=== PATIENT | male | born 1990 | race Caucasian/White ===

== ENCOUNTER 2024-11-08 10:25 | Outpatient (REF) | payer OTHER, MEDICAID, SELFPAY ==
--- NOTE | ~2024-11-08 | XR_ITS ---
EXAMINATION: XR CHEST CLINICAL INFORMATION: R05.9 - Cough, unspecified COMPARISON: None available. TECHNIQUE: 2 views of the chest were obtained. FINDINGS: No consolidation pleural effusion or pneumothorax. Cardiomediastinal silhouette size is normal. Osseous structures are intact. S-shaped curvature of the thoracic spine. XR/XR chest 2V IMPRESSION: No acute airspace disease. Questionable scoliosis, mild. Electronically signed by: Dayron Ureña MD 11/08/2024 11:15 AM [facility]
--- OUTSIDE RECORDS SUMMARY | 2024-11-08 11:40 | XMS_ITS | Clinical Summary ---
Author Organization [address] [facility] Address [address] [place] [address] Phone Care Team Providers Care Underground Production Foreperson Name Role Phone Dave French DO Primary Care Provider [phone] Family History Medical History Relation Name Comments [...] LAB CHEMISTRY METHOD 07/28/2024 5:21 PM EST [facility] Triglycerides 131 0 - 150 mg/dL LAB CHEMISTRY METHOD 07/28/2024 5:21 PM EST [facility] HDL 39(L) >=40 mg/dL LAB CHEMISTRY METHOD 07/28/2024 5:21 PM EST [facility] LDL Calculated 105(H) 0 - 100 mg/dL LAB CHEMISTRY METHOD 07/28/2024 5:21 PM EST [facility] VLDL Cholesterol Sean 26.2 mg/dL LAB CHEMISTRY METHOD 07/28/2024 5:21 PM EST [facility] Non HDL Chol. (LDL+VLDL) 131 <145 mg/dL LAB CHEMISTRY METHOD 07/28/2024 5:21 PM EST [facility] Chol/HDL Ratio 4.4 0.0 - 4.4 LAB CHEMISTRY METHOD 07/28/2024 5:21 PM EST [facility] Blood Venous blood specimen / Unknown Venipuncture / Unknown 07/28/2024 1:46 PM EST 07/28/2024 1:46 PM EST us Samuel Chapman OFFAL TRIMMER LAB BLOOD ORDERABLES Final Resul t [facility] [address] [place] [address], from Last 3 Months or Most Recently Relevant to Health Maintenance Insurance [place] - [place] Care Teams Underground Production Foreperson Relationship Specialty Start Date End Date Dave French DO [address] [place] [phone] PCP - General Internal Medicine 07/28/24
== END 2024-11-08 10:26 | disposition home or self-care (01) ==
LOC: HO.HMGCX 10:25
PROVIDERS: PCP Internal Medicine; Visit Provider Physician Assistant
DX: R05.2 Subacute cough (principal)
CPT/HCPCS: 71046

== ENCOUNTER 2024-11-08 10:25 | Outpatient (AMB) | payer OTHER, MEDICAID, SELFPAY ==
--- NOTE | 2024-11-08 10:31 | AM.OFFWIN_ITS ---
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 Patient Tobacco Use Status: Never used Tobacco Allergies Penicillins Adverse Reaction (Severe, Verified 11/08/24 10:35) Anaphylaxis Do you need a note to return to daycare/school/sports/work: Yes HPI HPI Comments History of Present Illness Details History - The patient is a 34-year-old male pres enting with a persistent dry cough. - Initially, bronchitis was diagnosed in late August while abroad in [facility] and [facility]. - Improvement was noted upon return home ; however, the cough persisted for 2 to 3 months, with a tendency to worsen. - The cough is primarily non-productive but was associated with vomiting due to severe coughing without associated symptoms such as sore throat, ear pain, headaches, sinus pain, shortness of breath, fevers or wheezing. - No history of acid reflux symptoms is reported though cough is worse after eating. - Previous treatment included antihistam bert, inhaler and montelukast for the initially diagnosed bronchitis. - Patient is a student at [employer] Physical Exam General: Cooperative, healthy appearing, comfortable and no acute distress Orientation/consciousness: Patient oriented x3 Limitations: No limitations Head: Normal to inspection Ears: Hearing grossly normal bilaterally, external ears normal and TM's normal bilaterally Nose: Normal external nose present, Normal nares present and No nasal discharge present Face and sinus: Normal facial exam and Yes sinuses nontender Mouth: Normal oral and palatal mucosa present and moist mucous membranes Throat: Yes tonsils normal, Yes uvula midline. slight posterior oropharynx erythema Eyes: Appearance normal, both eyes and all related structures Neck: Normal visual inspection Respiratory: Clear to auscultation bilaterally. Normal respiratory effort, able to speak in complete sentences, Actively coughing, no respiratory distress, not tachypneic, no tripod positioning and no use of accessory muscles Cardiovascular: Regular rate and rhythm. Normal S1 and S2 Skin: No rashes or lesions noted Neuro: Patient oriented x3 Extremities: Normal to inspection and Yes no clubbing, cyanosis or edema PFSH Social History Patient Tobacco Use Status: Never used Tobacco Review of Systems Const All systems reviewed & are unremarkable except as noted in HPI and below Physical Exam Vital Signs: Last Vital Signs Temp 99.3 F 11/08/24 10:33 Pulse 103 H 11/08/24 10:33 BP 120/78 11/08/24 10:33 Pulse Ox 99 11/08/24 10:33 Oxygen Delivery Method Room Air 11/08/24 10:33 Assessment & Plan Assessment & Plan (1) Cough: Code(s): R05.9 - Cough, unspecified Qualifiers: Cough type: subacute Qualified Code(s): R05.2 - Subacute cough Plan: I aim to address the chronic cough by investigating potential lingering bacterial infection or reflux-related issues. A chest x-ray will be conducted to identify any pathological structural concerns. A prescribed course of Azithromycin will be given to treat possible bacterial involvement. In case of persistence post-antibiotic treatment, I recommend starting omeprazole, particularly if postprandial exacerbation is noticed, to manage possible reflux. Continuing omeprazole will be initiated twice daily to assess efficacy in symptom control. Further action, particularly in terms of ongoing reflux management or medication alteration, will depend on symptom evolution. Coordination with the patient's primary care physician will be advisable if GERD becomes evident in symptomatology. Patient was informed and verbally consented to the use of an ambient scribe for clinic note documentation during this visit Orders: Orders XR chest 2V Today R05.9 - Cough, unspecified Medications: New azithromycin For 250 mg dose pack: take 500 mg today (day 1), then 250 mg for 4 days (days 2-5) PO 6 tabs 0RF Coding Level of Care Code New Pt Level 4 (24993) Diagnoses Subacute cough R05.2 Cough type: subacute
[2024-11-08 10:33] VITALS: BP 120/78; PULSE 98; TEMP 37.4; O2SAT 99
--- OUTSIDE RECORDS SUMMARY | 2024-11-08 11:03 | XMS_ITS | Clinical Summary ---
Author Organization [address] [facility] Address [address] [place] [address] Phone Care Team Providers Care Wax Machine Operator Name Role Phone Dave French DO Primary Care Provider [phone] Family History Medical History Relation Name Comments Diabetes Father Hyperlipidemia Father Coronary artery disease Maternal Grandfather COPD Maternal Grandmother No Known Problems Mother Coronary artery disease Paternal Grandfather Coronary artery disease Paternal Grandmother Asthma Sister 1 Brain cancer Sister 2 Other: liver problems Sister 2 Other: pituatery prblem Sister 2 Relation Name Status Comments Father Maternal Grandfather Maternal Grandmother Mother Paternal Grandfather Paternal Grandmother Sister 1 Sister 2 Alive Social History Tobacco Use Types Packs/Day Years Used Date Smoking Tobacco: Never Smokeless Tobacco: Never Alcohol Use Standard Drinks/Week Comments Never 0 (1 standard drink = 0.6 oz pur e alcohol) Sex and Gender Information Value Date Recorded Sex Assigned at Not on file Legal Sex Male 3:21 PM EST Gender Identity Not on file Sexual Orientation Not on file Obstetrics History Plan of Treatment Health Maintenance Due Date Last Done Comments Hepatitis B Vaccines (1 of 3 - 19+ 3-dose series) 2009 Pneumococcal Vaccine: Pediatrics (0 to 5 Years) and At-Risk Patients (6 to 64 Years) (1 of 2 - PCV) 2009 Depression Screening 08/19/2022 HIV Screening 08/19/2022 Hepatitis C Screening 08/19/2022 Social Influencers of Health Screening 08/19/2022 COVID-19 Vaccine (3 - 2023-2 5 season) 2024 08/29/2021, 02/13/2021 Influenza Vaccine (#1) 2024 Cholesterol Screening (Lipid Panel) 07/28/2029 07/28/2024 DTaP,Tdap,and Td Vaccines (2 - Td or Tdap) 07/20/2033 07/20/2023 HIB Vaccines Aged Out No longer eligi ble based on patient's age to complete this topic HPV Vaccines Aged Out No longer eligi ble based on patient's age to complete this topic Hepatitis A Vaccines Aged Out No long er eligible based on patient's age to complete this topic IPV Vaccines Aged Out No longer eligi ble based on patient's age to complete this topic MMR Vaccines Aged Out No longer eligi ble based on patient's age to complete this topic Meningococcal ACWY Vaccine Aged Out N o longer eligible based on patient's age to complete this topic Meningococcal B Vacine Aged Out No lo nger eligible based on patient's age to complete this topic RSV Immunization Patients Under 20 months Aged Out No longer eligible b ased on patient's age to complete this topic Varicella Vaccines Aged Out No longer eligible based on patient's age to complete this topic Procedures Procedure Name Priority Date/Time Associated Diagnosis Comments LIPID PANEL WITH REFLEX TO DIRECT LDL Routine 07/28/2024 1:46 PM EST Routine general medical examination at a health care facility Impaired fasting glucose Screening for ischemic heart disease Screening for thyroid disorder from Last 3 Months or Most Recently Relevant to Health Maintenance Results * (ABNORMAL) Lipid panel with reflex to direct LDL (07/28/2024 1:46 PM EST) Cholesterol 170 0 - 200 mg/dL LAB CHEMISTRY METHOD 07/28/2024 5:21 PM EST [facility] Triglycerides 131 0 - 150 mg/dL LAB CHEMISTRY METHOD 07/28/2024 5:21 PM EST [facility] HDL 39(L) >=40 mg/dL LAB CHEMISTRY METHOD 07/28/2024 5:21 PM EST [facility] LDL Calculated 105(H) 0 - 100 mg/dL LAB CHEMISTRY METHOD 07/28/2024 5:21 PM EST [facility] VLDL Cholesterol Sean 26.2 mg/dL LAB CHEMISTRY METHOD 07/28/2024 5:21 PM EST [facility] Non HDL Chol. (LDL+VLDL) 131 <145 mg/dL LAB CHEMISTRY METHOD 07/28/2024 5:21 PM EST [facility] Chol/HDL Ratio 4.4 0.0 - 4.4 LAB CHEMISTRY METHOD 07/28/2024 5:21 PM EST [facility] Blood Venous blood specimen / Unknown Venipuncture / Unknown 07/28/2024 1:46 PM EST 07/28/2024 1:46 PM EST us Samuel Chapman MANAGER NON PROFIT LAB BLOOD ORDERABLES Final Resul t [facility] [address] [place] [address], from Last 3 Months or Most Recently Relevant to Health Maintenance Insurance MEDICAID - [place] CIG[place] Care Teams Wax Machine Operator Relationship Specialty Start Date End Date Dave French DO [address] [place] [phone] PCP - General Internal Medicine 07/28/24
== END 2024-11-08 11:04 | disposition home or self-care (01) ==
PROVIDERS: PCP Internal Medicine; Visit Provider Physician Assistant
DX: R05.2 Subacute cough (principal)

== ENCOUNTER → 2024-11-08 10:58 | Outpatient (BNV) | payer OTHER, MEDICAID, SELFPAY | PROVIDERS: PCP Internal Medicine; Visit Provider Radiology Diagnostic Radiology | DX: R05.9 Cough, unspecified (principal); R50.9 Fever, unspecified | CPT/HCPCS: 71046 ==

== ENCOUNTER 2024-11-10 09:42 | Emergency (ER) | payer OTHER, MEDICAID, SELFPAY ==
--- NOTE | ~2024-11-10 | XR_ITS ---
EXAMINATION: XR CHEST CLINICAL INFORMATION: cough, fever COMPARISON: 11/08/2024. TECHNIQUE: 2 views of the chest were obtained. FINDINGS: The cardiac, hilar, and mediastinal contours are normal. The lungs are clear bilaterally. There is no pneumothorax or pleural effusion. There is no focal osseous or soft tissue abnormality. XR/XR chest 2V IMPRESSION: Normal chest. Electronically signed by: Elmer Sauceda MD 11/10/2024 01:14 PM [facility]
[2024-11-10 10:21] VITALS: BP 120/69; PULSE 110; RESP 16; TEMP 37.4; O2SAT 94; BMI 28.5
[2024-11-10 10:51] LABS: Basophils Percent Auto 0.8 % (0-2); Eosinophils Percent Auto 0.6 % (0-4); Hematocrit 41.2 % (42.0-52.0); Hemoglobin 14.9 g/dl (14.0-18.0); Imm Gran Abs Auto 0.04 X10*3/uL (0.00-0.03); Imm Gran Pct Auto 1.1 % (0.0-0.4); Lymphocytes Absolute Auto 1.3 X10*3/uL (1.2-4.9); Lymphocytes Percent Auto 36.7 % (20-40); MANUAL DIFF FLAG SCAN; Mean Corpuscular HGB Conc 36.2 g/dl (31.0-36.0); Mean Corpuscular Hemoglobin 32.9 pg (27.0-33.0); Mean Corpuscular Volume 90.9 fL (80.0-98.0); Mean Platelet Volume 10.4 fL (9.4-12.4); Monocytes Absolute Auto 0.4 X10*3/uL (0.1-1.2); Monocytes Percent Auto 11.5 % (2-11); Neutrophils Absolute Auto 1.8 x10*3/uL (2.0-8.3); Neutrophils Percent Auto 49.3 % (45-73); Platelet Count 145 X10*3/uL (160-400); Red Blood Count 4.53 X10*6/uL (4.60-5.80); Red Cell Distribution Width 11.6 % (11.0-16.0); SCAN SMEAR FLAG 1; White Blood Count 3.6 X10*3/uL (4.8-10.8)
[2024-11-10 10:54] LABS: Alanine Aminotransferase 103 U/L (0-40); Albumin Level 4.2 g/dL (3.5-5.0); Alkaline Phosphatase 87 U/L (39-117); Anion Gap 11 (12-20); Aspartate Amino Transferase 48 U/L (5-37); Bilirubin Total 0.7 mg/dL (0.0-1.0); Blood Urea Nitrogen 13 mg/dL (9-16); Calcium 9.5 mg/dL (8.4-10.2); Carbon Dioxide 25 mmol/L (22-29); Chloride 103 mmol/L (96-108); Creatinine Clr Calc Pharmacy 127.3; Estimated Glomerular Filt Rate > 60; Glucose Random 116 mg/dL (60-115); Potassium 3.7 mmol/L (3.3-5.1); Sodium 135 mmol/L (135-145); Total Protein 7.7 g/dL (6.5-8.0)
[2024-11-10 11:20] LABS: SLIDE REVIEW VERIFIED
[2024-11-10 11:29] LABS: Influenza A PCR NEGATIVE (Negative); Influenza B PCR NEGATIVE (Negative); Resp Syncy Virus RNA Qual PCR NEGATIVE (Negative); SARS COV2 PCR INHOUSE NEGATIVE (Negative)
[2024-11-10 14:43] VITALS: BP 157/67; PULSE 94; RESP 18; TEMP 37.1; O2SAT 99
--- NOTE | 2024-11-10 14:46 | ED.GENADULT ---
HPI - General Adult General Chief complaint: Upper Respiratory Symptoms Stated complaint: Cough Time Seen by Provider: 11/10/24 14:53 Source: patient Limitations: no limitations History of Present Illness ED Provider: Malika Lomeli PA-C HPI narrative: 34-year-old male presents with cough and cold symptoms x1 week. Ongoing dry repetitive cough, with nausea vomiting diarrhea. Patient is having 3-4 loose stools daily. Denies recent travel, prior use of antibiotics, hospitalizations. No known sick contacts with same symptoms. Denies chest pain, shortness of breath, known fevers. Patient was already seen at urgent Care, was prescribed a Z-Eliazar, had a chest x-ray at that time that was negative. Related Data Previous Rx's ?Medication ?Instructions ?Recorded azithromycin 250 mg tablet See Rx Instructions PO .COMPLEX #6 11/08/24 tabs benzonatate 200 mg capsule 200 mg PO TID PRN cough #10 caps 11/10/24 dicyclomine 20 mg tablet 20 mg PO BID PRN diarrhea #7 tabs 11/10/24 ondansetron HCl 4 mg tablet 4 mg PO Q8H PRN nausea and 11/10/24 vomiting #10 tabs Allergies Allergy/AdvReac Type Severity Reaction Status Date / Time Penicillins AdvReac Severe Anaphylaxis Verified 11/10/24 10:24 Review of Systems Review of Systems: Yes all other systems are reviewed and are negative Constitutional: Constitutional: Reports fatigue, Denies fever(s) and Reports malaise Cardiovascular: Cardiovascular: Denies chest pain and Denies dyspnea Respiratory: Respiratory: Denies chest congestion, Reports cough, Denies dyspnea and Denies wheezing Gastrointestinal: Gastrointestinal: Denies abdominal pain, Reports diarrhea, Reports nausea and Reports vomiting Endocrine: Endocrine: Reports fatigue Allergic/Immunologic: Allergic/Immunologic: Denies wheezing PMFSH Past Medical History Attestation statement: The following information was validated with the patient. Social History Social History Patient Tobacco Use Status: Never used Tobacco Advance Directives: No Advance Directives Information Provided: Yes Do you have a plan to hurt others: No Plan Physical Exam ED Vital Signs: Vital Signs - 24 hr 11/10/24 10:21 11/10/24 14:43 11/10/24 14:47 Temperature 99.3 F 98.7 F 98.7 F Pulse Rate 110 H 94 94 Respiratory Rate 16 18 18 Blood Pressure 120/69 157/67 H 157/67 H Pulse Oximetry 94 99 99 Oxygen Delivery Method Room Air Room Air Room Air BMI result Body Mass Index 28.5 Const Other: Alert, well-appearing Orientation/consciousness: patient oriented x3 Resp Other: Active dry cough, no bronchospasm, lungs are clear to auscultation no wheezing, no tachypnea Cardio Other: Normal peripheral perfusion Skin Other: Warm dry no rash Neuro General: patient oriented x3, gait normal, no focal motor deficits and CN's II-XI intact bilaterally Psych Other: Calm cooperative Medical Decision Making Medical Decision Making MDM Narrative: 34-year-old male presents with cough and cold symptoms x1 week. Ongoing dry repetitive cough, with nausea vomiting diarrhea. Patient is having 3-4 loose stools daily. Denies recent travel, prior use of antibiotics, hospitalizations. No known sick contacts with same symptoms. Denies chest pain, shortness of breath, known fevers. Patient was already seen at urgent Care, was prescribed a Z-Eliazar, had a chest x-ray at that time that was negative. No relevant chronic issues History: Per patient I have considered the following differential diagnoses: Pneumonia, bronchitis, viral syndrome, viral gastroenteritis, C diff, traveler's diarrhea Plan: Screening labs including a viral panel and chest x-ray were obtained from triage, everything is negative. In regard to the active GI symptoms, this is likely viral gastroenteritis. The patient has no complaints of abdominal pain, imaging not warranted. To note he has no risk factors for C diff or traveler's diarrhea. I have independently reviewed the following tests: Labs: No leukocytosis, not anemic, no electrolyte abnormality, viral panel negative Chest x-ray: XR/XR chest 2V IMPRESSION: Normal chest. Electronically signed by: Elmer Sauceda MD 11/10/2024 01:14 PM [facility] Lab Data 11/10/24 10:34 11/10/24 10:34 Labs: Lab Results 11/10/24 Range/Units 10:34 WBC 3.6 L (4.8-10.8) X10*3/uL RBC 4.53 L (4.60-5.80) X10*6/uL Hgb 14.9 (14.0-18.0) g/dl Hct 41.2 L (42.0-52.0) % MCV 90.9 (80.0-98.0) fL MCH 32.9 (27.0-33.0) pg MCHC 36.2 H (31.0-36.0) g/dl RDW 11.6 (11.0-16.0) % Plt Count 145 L (160-400) X10*3/uL MPV 10.4 (9.4-12.4) fL Immature Gran % (Auto) 1.1 H (0.0-0.4) % Neut % (Auto) 49.3 (45-73) % Lymph % (Auto) 36.7 (20-40) % [place] % (Auto) 11.5 H (2-11) % Eos % (Auto) 0.6 (0-4) % Baso % (Auto) 0.8 (0-2) % Lymph # (Auto) 1.3 (1.2-4.9) X10*3/uL [place] # (Auto) 0.4 (0.1-1.2) X10*3/uL Eos # (Auto) 0.0 (0.0-0.4) X10*3/uL Baso # (Auto) 0.0 (0.0-0.2) X10*3/uL Abs Immat Gran (auto) 0.04 H (0.00-0.03) X10*3/uL Absolute Neuts (auto) 1.8 L (2.0-8.3) x10*3/uL Absolute Nucleated RBC 0.000 (0.0-0.012) X10*3/uL Nucleated RBC % (auto) 0.0 (0.0-0.2) /100WBC Smear Tech's Comments VERIFIED Sodium 135 (135-145) mmol/L Potassium 3.7 (3.3-5.1) mmol/L Chloride 103 (96-108) mmol/L Carbon Dioxide 25 (22-29) mmol/L Anion Gap 11 L (12-20) BUN 13 (9-16) mg/dL Creatinine 0.84 (0.5-1.4) mg/dL Estim Creat Clear Calc 127.3 Estimated GFR > 60 Random Glucose 116 H (60-115) mg/dL Calcium 9.5 (8.4-10.2) mg/dL Total Bilirubin 0.7 (0.0-1.0) mg/dL AST 48 H (5-37) U/L ALT 103 H (0-40) U/L Alkaline Phosphatase 87 (39-117) U/L Total Protein 7.7 (6.5-8.0) g/dL Albumin 4.2 (3.5-5.0) g/dL Influenza Type A (PCR) NEGATIVE (Negative) Influenza Type B (PCR) NEGATIVE (Negative) RSV RNA Qual (PCR) NEGATIVE (Negative) SARS-CoV-2 RNA (RT-PCR) NEGATIVE (Negative) Discharge Plan Discharge Clinical Impression: Acute viral syndrome, Gastroenteritis Patient Disposition: Home, Self-Care Instructions: Gastroenteritis (ED), Viral Syndrome (ED) Additional Instructions: You have a virus causing your symptoms, there have been numerous respiratory viruses circulating within the community, that also cause gastrointestinal symptoms. See home care instructions. Uses Zofran as needed for nausea. Use the dicyclomine as needed for diarrhea or abdominal cramping. Use the Tessalon Perles for your cough. Follow up with your primary care provider as needed. To note, all of your screening labs were normal, you were tested for influenza RSV and COVID, the viral panel was negative as well. The chest x-ray is clear. Prescriptions: New ondansetron HCl 4 mg tablet 4 mg PO Q8H PRN (Reason: nausea and vomiting) Qty: 10 0RF dicyclomine 20 mg tablet 20 mg PO BID PRN (Reason: diarrhea) Qty: 7 0RF benzonatate 200 mg capsule 200 mg PO TID PRN (Reason: cough) Qty: 10 0RF No Action azithromycin 250 mg tablet See Rx Instructions PO .COMPLEX Qty: 6 0RF Rx Instructions: For 250 mg dose pack: take 500 mg today (day 1), then 250 mg for 4 days (days 2-5) PO Stand Alone Forms: Work/School Release Interventions: ED Discharge Assessment Last Done: 11/10/24 14:47 Print Language: Luxembourgish
[2024-11-10 14:47] VITALS: BP 157/67; PULSE 94; RESP 18; TEMP 37.1; O2SAT 99
--- OUTSIDE RECORDS SUMMARY | 2024-11-10 15:02 | XMS_ITS | Clinical Summary ---
Author Organization [address] [facility] Address [address] [place] [address] Phone Care Team Providers Care Feller Buncher Operator Name Role Phone Dave French DO Primary Care Provider [phone] Family History Medical History Relation Name Comments [...] LAB CHEMISTRY METHOD 07/28/2024 5:21 PM EST [facility] Triglycerides 131 0 - 150 mg/dL LAB CHEMISTRY METHOD 07/28/2024 5:21 PM EST [facility] HDL 39(L) >=40 mg/dL LAB CHEMISTRY METHOD 07/28/2024 5:21 PM EST [facility] LDL Calculated 105(H) 0 - 100 mg/dL LAB CHEMISTRY METHOD 07/28/2024 5:21 PM EST [facility] VLDL Cholesterol Sean 26.2 mg/dL LAB CHEMISTRY METHOD 07/28/2024 5:21 PM EST [facility] Non HDL Chol. (LDL+VLDL) 131 <145 mg/dL LAB CHEMISTRY METHOD 07/28/2024 5:21 PM EST [facility] Chol/HDL Ratio 4.4 0.0 - 4.4 LAB CHEMISTRY METHOD 07/28/2024 5:21 PM EST [facility] Blood Venous blood specimen / Unknown Venipuncture / Unknown 07/28/2024 1:46 PM EST 07/28/2024 1:46 PM EST us Samuel Chapman BREAKER LAYER LAB BLOOD ORDERABLES Final Resul t [facility] [address] [place] [address], from Last 3 Months or Most Recently Relevant to Health Maintenance Insurance [place] - [place] Care Teams Feller Buncher Operator Relationship Specialty Start Date End Date Dave French DO [address] [place] [phone] PCP - General Internal Medicine 07/28/24
== END 2024-11-10 15:02 | disposition home or self-care (01) ==
PROVIDERS: Emergency Provider Emergency Medicine; PCP Internal Medicine
DX: K52.9 Noninfective gastroenteritis and colitis, unspecified (principal); B34.9 Viral infection, unspecified; R05.9 Cough, unspecified; R50.9 Fever, unspecified; R11.2 Nausea with vomiting, unspecified; Z03.818 Encounter for observation for suspected exposure to other biological agents ruled out
CPT/HCPCS: 0241U; 71046; 80053; 85025; 99283

== ENCOUNTER → 2024-11-10 12:11 | Outpatient (BNV) | payer OTHER, MEDICAID, SELFPAY | PROVIDERS: PCP Internal Medicine; Visit Provider Radiology Diagnostic Radiology | DX: R05.9 Cough, unspecified (principal); R50.9 Fever, unspecified | CPT/HCPCS: 71046 ==